=== PATIENT | male | born 1945 | race Caucasian/White ===

== ENCOUNTER 2018-04-20 05:58 | Emergency (ER) | payer OTHER ==
[~2018-04-20] VITALS: Ht 177.8 cm; Wt 111.0 kg
[2018-04-20 06:49] LABS: HEMATOCRIT 40.2 % (38.0-50.0); HEMOGLOBIN 14.3 G/DL (12.5-16.6); MCH 33.4 PG (29.0-34.0); MCHC 35.6 G/DL (30.0-36.0); MCV 93.9 FL (86-99); PLATELET COUNT 202 K/uL (156-360); RBC DIS.WIDTH-CV 11.7 % (11.8-14.6); RBC DIS.WIDTH-SD 40.6 % (39-53); RED BLOOD COUNT 4.28 M/uL (4.00-5.50); WHITE BLOOD COUNT 9.4 K/uL (4.1-10.2)
[2018-04-20 06:57] LABS: ALBUMIN 3.8 g/dL (3.2-4.8); CHLORIDE 99 mEq/L (99-109); POTASSIUM 4.6 mEq/L (3.7-5.4); SODIUM 132 mEq/L (136-147)
[2018-04-20 07:00] LABS: GLUCOSE 237 mg/dL (70-99); TOTAL PROTEIN 7.2 g/dL (6.4-8.3)
[2018-04-20 07:01] LABS: TOTAL BILIRUBIN 1.7 mg/dL (0.0-1.0)
[2018-04-20 07:03] LABS: ALKALINE PHOSPHATASE 47 IU/L (3-129); CREATININE 1.3 mg/dL (0.6-1.3); GFR ESTIMATE (CALCULATED) 58 mL/min/ (58.99-99999)
[2018-04-20 07:04] LABS: UREA NITROGEN (BUN) 16 mg/dL (9-23)
[2018-04-20 07:05] LABS: AST (GOT) 24 IU/L (2-34)
[2018-04-20 07:06] LABS: ALT (GPT) 29 IU/L (3-49)
[2018-04-20 07:09] LABS: TROP-I INTERPRETATION NEGATIVE; TROPONIN-I < 0.01 ng/mL (0.0-0.30)
[2018-04-20] MEDS ORDERED: PROAIR HFA8.5 GM IH (09:00)
[2018-04-20 09:14] VITALS: BP 125/87
== END 2018-04-20 09:15 | disposition home or self-care (01) ==
LOC: EME 05:58
PROVIDERS: Nurse Practitioner Family
DX: J20.8 Acute bronchitis due to other specified organisms (principal); R51 Headache; Z86.79 Personal history of other diseases of the circulatory system; Z87.891 Personal history of nicotine dependence
CPT/HCPCS: 71046; 80053; 82948; 83605; 84484; 85027; 93005; 99281; 99283